=== PATIENT | male | born 1940 | race Hispanic/Latino ===

== ENCOUNTER 2017-05-03 17:31 | Inpatient (IN) | payer MEDICARE, OTHER ==
--- NOTE | 2017-05-03 18:03 | ED PDOC ---
Arrival/HPI - General Historian: Spouse, Other (SON) - History of Present Illness Time/Duration: Prior to Arrival Symptom Onset: Sudden Symptom Course: Worsening <Sonia Mcpherson - Last Filed: 05/03/17 21:55> <Cesilia Duffy - Last Filed: 05/03/17 22:28> - General Chief Complaint: Altered Mental Status Time Seen by Provider: 05/03/17 17:39 - History of Present Illness Narrative History of Present Illness (Text): 05/03/17 18:03 Patient is a 76 y/o with PMH of CAD s/p CABG 13 years ago, Alzheimer dementia, Parkinson, BPH brought in by family secondary to multiple falls. As per patient son, he was trying to change patient, when patient fell forward multiple times, hit his head once. Patient was very agitated, gave patient Xanax, however Xanax made the agitation worst. Patient is incoherent, and as per this is his baseline. Patient's states for the past 3 weeks patient is not able to move his left hand well. Unable to obtain ROS due to mental status. (Sonia Mcpherson) Past Medical History - Provider Review Nursing Documentation Reviewed: Yes - Travel History Have you recently traveled outside [place] w/in the past 3 mons?: No - Tetanus Immunization Tetanus Immunization: Unknown - Cardiac Hx Cardiac Disorders: Yes ([place]) Other/Comment: CARDIAC HX WITH STENTS. DEMENTIA - Pulmonary Hx Respiratory Disorders: No - Neurological Hx Neurological Disorder: Yes Hx Dementia: Yes - HEENT Hx Deafness: Yes - Renal Hx Renal Disorder: No - Endocrine/Metabolic Hx Endocrine Disorders: No - Hematological/Oncological Hx Blood Disorders: No - Integumentary Hx Dermatological Disorder: No - Musculoskeletal/Rheumatological Hx Musculoskeletal Disorders: No Hx Falls: No - Gastrointestinal Hx Gastrointestinal Disorders: No - Genitourinary/Gynecological Hx Genitourinary Disorders: No - Psychiatric Hx Psychophysiologic Disorder: No Hx Substance Use: No - Surgical History Hx Cardiac Catheterization: Yes Hx Coronary Stent: Yes Hx Open Heart Surgery: Yes (cabg) - Suicidal Assessment Feels Threatened In Home Enviroment: No <Sonia Mcpherson - Last Filed: 05/03/17 21:55> Family/Social History - Physician Review Nursing Documentation Reviewed: Yes Family/Social History: No Known Family HX Smoking Status: Former Smoker Hx Alcohol Use: No Hx Substance Use: No Hx Substance Use Treatment: No <Sonia Mcpherson - Last Filed: 05/03/17 21:55> Allergies/Home Meds <Sonia Mcpherson - Last Filed: 05/03/17 21:55> <Cesilia Duffy - Last Filed: 05/03/17 22:28> Allergies/Adverse Reactions: Allergies No Known Allergies Allergy (Unverified 05/03/17 17:34) Home Medications: Home Meds Medication Instructions Recorded Confirmed Alprazolam [Xanax] 1 tab PO BID 05/03/17 05/03/17 Aspirin [Aspirin Chewable] 81 mg PO DAILY 05/03/17 05/03/17 Lisinopril [Zestril] 40 mg PO DAILY 05/03/17 05/03/17 Memantine [Namenda] 10 mg PO DAILY 05/03/17 05/03/17 Review of Systems - Review of Systems Systems not reviewed;Unavailable: Dementia <Sonia Mcpherson - Last Filed: 05/03/17 21:55> Physical Exam Temperature: Afebrile Blood Pressure: Hypotensive Pulse: Tachycardic Respiratory Rate: Tachypneic Appearance: Positive for: Ill-Appearing, Uncomfortable, Cachectic Pain Distress: Other (n/a) Mental Status: Positive for: Confused, Agitated - Systems Exam Head: Present: Normocephalic. No: Atraumatic Pupils: Present: PERRL Extroacular Muscles: Present: EOMI Conjunctiva: No: Icteric Mouth: Present: Dry Neck: Present: Normal Range of Motion. No: Meningeal Signs, JVD, Lymphadenopathy Respiratory/Chest: Present: Clear to Auscultation, Good Air Exchange, Tachypneic. No: Respiratory Distress, Accessory Muscle Use, Wheezes, Rales, Retracting, Rhonchi Cardiovascular: Present: Regular Rate and Rhythm, Normal S1, S2. No: Murmurs, Irregular Rhythm, Tachycardic, Bradycardic, Rub Abdomen: Present: Tenderness, Normal Bowel Sounds, Scars. No: Distention, Peritoneal Signs, Rebound, Guarding, Hernias, Feeding Tubes Back: Present: Normal Inspection, Other (rashes) Upper Extremity: Present: Normal Inspection. No: Cyanosis, Edema Lower Extremity: Present: Normal Inspection, Edema Neurological: Present: Other (cogwheel rigidity, intention and non intention tremors. ). No: Speech Normal, Motor Func Grossly Intact, Normal Sensory Function, Normal Cerebellar Funct, Norm Deep Tendon Reflexes, Gait Normal, Memory Normal, Normal 2Pt Descrimination Skin: Present: Rashes, Diaphoretic, Laceration (1 CM ON THE FOREHEAD), Abrasion (On the left elbow. ), Other (left hand is swollen, mild erythema. ) Psychiatric: Present: Anxious, Agitated, Delusional <Sonia Mcpherson - Last Filed: 05/03/17 21:55> Medical Decision Making Re-evaluation Time: 21:40 - Lab Interpretations I have reviewed the lab results: Yes Interpretation: Abnormal lab values - RAD Interpretation Broadcast Traffic Coordinator: ED Physician - EKG Interpretation Interpreted by ED Physician: Yes Type: 12 lead EKG <Sonia Mcpherson - Last Filed: 05/03/17 21:55> <Cesilia Duffy - Last Filed: 05/03/17 22:28> ED Course and Treatment: 05/03/17 18:18 Patient is a 76 y/o with PMH of CAD s/p CABG 13 years ago, Alzheimer dementia, Parkinson, BPH brought in by family secondary to multiple falls. Differentials: ACS versus CVA versus sepsis versus worsening Parkinson/dementia Plan: CBC, CMP, CARDIAC ENZYMES. UA, UCX, BCX, VBG EKG, CHEST X-RAY, CT head w/o contrast 1.3 L NS Restrains due to agitation/safety. Discussed with Dr Duffy 05/03/17 19:26 Patient's rectal temp is 99.7, tachypneic, wbc of 15, and lactic acid of 7.3. code sepsis was called. Patient started on maxipime and vanco 1 gm of each IVPB. NS at 30 mg/kg/hr to be continued. Patient has labile hypotension as well. ICU evaluation was requested, however , after speaking to the spouse patient doesn't want anything, no intubation, no central lines, and no chest compressions. Dr Duffy spoke to Dr Hernandez, agreed with the decision, patient to be admitted to tele. Palliative nurse consult obtained. CT head w/o contrast- pending report. (Sonia Mcpherson) Patient Seen With Resident: In agreement with resident note which contains more details about the patient. Patient was seen and evaluated with resident. Came up with plan and treatment together. A 76 year old male with multiple falls today. Additional HPI as noted by resident. On physical exam, patient has rashes on back. Patient skin also diaphoretic and a 1 cm abrasion on the forehead needs no repair), abrasion on the left elbow, and left hand is swollen with mild erythema. Patient has no abdominal tenderness. Patient is anxious, agitated and delusional. On neurological exam, patient has cogwheel rigidity, intention and non intention tremors, motor function appears to be grossly intact. Patient is very uncooperative. Ordered EKG, chest xray, urinalysis and labs. Will give patient IV fluids. 05/03/17 22:20 CT results: IMPRESSION: 1. No gross intracranial hemorrhage. Recommend repeat examination when clinically able. 2. Nonspecific white matter changes. 3. Incidental/non-acute findings are described above. The patient is here with the noted history. Temp is 99.7 rectal and is hemodynamically stable. Labs reveal leukocytosis with lactic acid of 7.3. Code sepsis called. Following code sepsis protocol, patient wad administered 30mL/kg IVF as well broad spectrum iv antibiotics. CXR showing questionable LLL infiltrate. The patient required 2mg versed to obtain a CT brain. CT brain was done with a lot of motion artifact but no gross bleed was noted. Per and son, the patient is to be made DNR/DNI with no pressor support if needed and no central lines placed if necessary. Repeat lactic acid is normal. The patient will be admitted to [facility] for altered mental status and sepsis. 05/03/17 22:25 Patient has been admitted to Dr. Hernandez's service as discussed with him earlier. (Cesilia Duffy) - Lab Interpretations Lab Results: 05/03/17 18:00 05/03/17 18:00 Lab Results 05/03/17 19:10: Urine Color Yellow, Urine Appearance Clear, Urine pH 5.5, Ur Specific [place] >= 1.030, Urine Protein 30 H, Urine Glucose (UA) Negative, Urine Ketones Negative, Urine Blood Moderate H, Urine Nitrate Negative, Urine Bilirubin Negative, Urine Urobilinogen 0.2, Ur Leukocyte Esterase Negative, Urine RBC 5 - 10, Urine WBC 0 - 2, Ur Epithelial Cells 0 - 2, Urine Bacteria Few 05/03/17 18:00: Sodium 140, Chloride 104, Potassium 4.7, Carbon Dioxide 21, Anion Gap 20, BUN 34 H, Creatinine 1.2, Est GFR ( Amer) > 60, Est GFR ( Non-Af Amer) 59, Random Glucose 101, Calcium 9.8, Phosphorus 4.3, Magnesium 1.9 , Total Bilirubin 0.7, AST 32, ALT 33, Alkaline Phosphatase 85, Lactate Dehydrogenase 611, Total Creatine Kinase 306 H, CK-MB (CK-2) 1.5, CK-MB (CK-2) % Cancelled, Troponin I 0.11 D, Total Protein 7.7, Albumin 4.3, Globulin 3.4, Albumin/Globulin Ratio 1.3, Lipase 111 05/03/17 18:00: pO2 38, VBG pH 7.30 L, VBG pCO2 49.0, VBG HCO3 24.1, VBG Total CO2 25.6, VBG O2 Sat (Calc) 77.2 H, VBG Base Excess -2.7 L, VBG Potassium 4.8, Sodium 142.0, Chloride 105.0, Glucose 108, Lactate 7.3 H*, FiO2 21.0, Venous Blood Potassium 4.8 05/03/17 18:00: PT 11.3, INR 1.05, APTT 25.2 05/03/17 18:00: WBC 15.0 H D, RBC 4.28, Hgb 12.8 L, Hct 37.7 L, MCV 88.1, MCH 29.9, MCHC 34.0, RDW 14.2, Plt Count 258, MPV 10.5, Gran % 87.9 H, Lymph % (Auto ) 5.1 L, [place] % (Auto) 6.7 H, Eos % (Auto) 0.2 L, Baso % (Auto) 0.1, Gran # 13.21 H, Lymph # 0.8 L, [place] # 1.0 H, Eos # 0.0, Baso # 0.02 - RAD Interpretation Narrative RAD Interpretations (Text): 05/03/17 21:59 Normal chest x-ray. (Sonia Mcpherson) Radiology Orders: 05/03/17 17:55 CHEST PORTABLE [RAD] Stat 05/03/17 17:57 HEAD W/O CONTRAST [CT] Stat - EKG Interpretation EKG Interpretation (Text): 05/03/17 21:57 NSR at 77, with PACs. mild sagging ST depression from V4-V6 more evident compared to 05/19/2015. ( Sonia Mcpherson) - Medication Orders Current Medication Orders: Discontinued Medications Sodium Chloride 1,000 ml/ IV (SUPPLIES) 1,000 mls @ 2,721.54 mls/hr IV ONCE ONE PRN Reason: 60 ML/KG/HR Stop: 05/03/17 17:52 Last Admin: 05/03/17 18:29 Dose: 2,721.54 mls/hr Cefepime HCl (Maxipime 1gm) 1 gm in 100 mls @ 100 mls/hr IVPB ONCE ONE PRN Reason: Protocol Stop: 05/03/17 19:59 Last Admin: 05/03/17 19:48 Dose: 100 mls/hr Vancomycin HCl (Vancomycin 1gm) 1 gm in 250 mls @ 167 mls/hr IVPB STAT STA PRN Reason: Protocol Stop: 05/03/17 20:24 Last Admin: 05/03/17 20:49 Dose: 167 mls/hr Sodium Chloride (Sodium Chloride 0.9%) 500 mls @ 360 mls/hr IV .Q1H24M STA Stop: 05/03/17 20:53 Last Admin: 05/03/17 20:05 Dose: 360 mls/hr Midazolam HCl (Versed Inj) 1 mg IVP ONCE ONE Stop: 05/03/17 19:31 Last Admin: 05/03/17 19:28 Dose: 1 mg Midazolam HCl (Versed Inj) 1 mg IVP ONCE ONE Stop: 05/03/17 19:48 Midazolam HCl (Versed Inj) 1 mg IVP ONCE STA Stop: 05/03/17 20:32 Last Admin: 05/03/17 20:49 Dose: 1 mg Midazolam HCl (Versed Inj) Confirm Administered Dose 2 mg .ROUTE .STK-MED ONE Stop: 05/03/17 21:42 Last Admin: 05/03/17 22:05 Dose: <Sonia Mcpherson - Last Filed: 05/03/17 21:55> - PA / WELT MAKER / Resident Statement / has reviewed & agrees with the documentation as recorded. MD/ has examined the patient and agrees with the treatment plan. - Scribe Statement The provider has reviewed the documentation as recorded by the Scribe <Cesilia Duffy - Last Filed: 05/03/17 22:28> - Scribe Statement Elsaclaribellyndsey Delunadi Provider Scribe Attestation: All medical record entries made by the Scribe were at my direction and personally dictated by me. I have reviewed the chart and agree that the record accurately reflects my personal performance of the history, physical exam, medical decision making, and the department course for this patient. I have also personally directed, reviewed, and agree with the discharge instructions and disposition. (Cesilia Duffy) Disposition/Present on Arrival - Present on Arrival Any Indicators Present on Arrival: No History of DVT/PE: No History of Uncontrolled Diabetes: No Urinary Catheter: No History of Decub. Ulcer: No History Surgical Site Infection Following: None - Disposition Have Diagnosis and Disposition been Completed?: Yes Disposition Time: 21:55 Patient Plan: Admission <Sonia Mcpherson - Last Filed: 05/03/17 21:55> <Cesilia Duffy - Last Filed: 05/03/17 22:28> - Disposition Diagnosis: Sepsis Disposition: HOSPITALIZED Patient Problems: Current Active Problems Problem Status Onset Sepsis Acute Condition: GUARDED
[2017-05-03 18:27] LABS: ADD MANUAL DIFF? NO
[2017-05-03 18:31] LABS: VENOUS BLOOD GAS BASE EXCESS -2.7 mmol/L (0.0-2.0)
[2017-05-03 18:33] LABS: BASO # 0.02 K/mm3 (0.0-2.0); BASO % 0.1 % (0.0-3.0); EOS % 0.2 % (1.5-5.0); GRAN # 13.21 (1.4-6.5); GRAN % 87.9 % (50.0-68.0); HEMATOCRIT 37.7 % (42.0-52.0); LYMPH # 0.8 (1.2-3.4); LYMPH % 5.1 % (22.0-35.0); MEAN CELL VOLUME 88.1 fL (80.0-105.0); MEAN CORPUSCULAR HEMOGLOBIN 29.9 pg (25.0-35.0); MEAN PLATELET VOLUME 10.5 fl (7.0-11.0); MONO % 6.7 % (1.0-6.0); PLATELET COUNT 258 10^3/uL (120.0-450.0); RED CELL DISTRIBUTION WIDTH 14.2 % (11.5-14.5)
[2017-05-03 18:41] LABS: ALB/GLOB RATIO 1.3 (1.1-1.8); ALKALINE PHOSPHATASE 85 U/L (38-133); ALT/SGPT 33 U/L (7-56); AST/SGOT 32 U/L (15-59); BILIRUBIN,TOTAL 0.7 mg/dL (0.2-1.3); BLOOD UREA NITROGEN 34 mg/dL (7-21); CALCIUM 9.8 mg/dL (8.4-10.5); CARBON DIOXIDE 21 mmol/L (21-33); CHLORIDE 104 mmol/L (98-107); GFR AFRICAN-AMERICAN > 60; GLUCOSE,RANDOM 101 mg/dL (70-110); LIPASE 111 U/L (23-300); MAGNESIUM 1.9 mg/dL (1.7-2.2); PHOSPHOROUS 4.3 mg/dL (2.5-4.5); POTASSIUM 4.7 mmol/L (3.6-5.0); SODIUM 140 mmol/L (132-148); TOTAL PROTEIN 7.7 g/dL (5.8-8.3)
[2017-05-03 18:42] LABS: INR 1.05 (0.93-1.08); PARTIAL THROMBOPLASTIN TIME 25.2 Seconds (23.7-30.8)
[2017-05-03 18:52] LABS: TROPONIN I 0.11 ng/mL
[2017-05-03] MEDS ORDERED: Vancomycin 1gm in NS 250ml 1 GM/250 ML BAG IVPB STA (18:55)
[2017-05-03] MEDS ORDERED: Cefepime 1gm in NS 100ml 1 GM/100 ML BAG IVPB ONE (19:00)
[2017-05-03] MEDS ORDERED: Midazolam 5 MG/5 ML VIAL IVP ONE ×2 (19:20→19:47)
[2017-05-03 19:22] LABS: PH,URINE 5.5 (4.7-8.0); URINE BILIRUBIN NEGATIVE (NEGATIVE); URINE BLOOD MODERATE (NEGATIVE); URINE GLUCOSE (UA) NEGATIVE (NEGATIVE); URINE KETONE NEGATIVE (NEGATIVE); URINE LEUKOCYTE ESTERASE NEGATIVE Leu/uL (NEGATIVE); URINE PROTEIN 30 mg/dL (<30 mg/dL); URINE UROBILINOGEN 0.2 E.U./dL (<1 E.U./dL)
[2017-05-03] MEDS ORDERED: Sodium Chloride 0.9% 500 ML IV STA (19:30)
[2017-05-03] MEDS ORDERED: Midazolam 2 MG/2 ML VIAL IVP ONE (19:30)
[2017-05-03 19:43] LABS: URINE COLOR YELLOW (YELLOW)
[2017-05-03 19:44] LABS: URINE APPEARANCE CLEAR (CLEAR)
[2017-05-03 19:45] LABS: URINE BACTERIA FEW (NEG); URINE EPITHELIAL CELLS 0 - 2 /hpf (0-5); URINE WBC 0 - 2 /hpf (0-6)
[2017-05-03] MEDS ORDERED: Midazolam 2 MG/2 ML VIAL IVP STA (20:31)
[2017-05-03 21:27] LABS: VENOUS BLOOD GAS BASE EXCESS -0.6 mmol/L (0.0-2.0)
[2017-05-03] MEDS ORDERED: Midazolam 2 MG/2 ML VIAL ONE (21:41)
--- NOTE | 2017-05-03 22:18 | CT ---
EXAM: CT Head Without Intravenous Contrast CLINICAL HISTORY: 76 years old, male; Injury or trauma; Fall; Initial encounter; Blunt trauma (contusions or hematomas); Injury details: Patient was medicated numerous times, taped, immobilized and still fighting-best films possible-sent for read per dr. Duffy TECHNIQUE: Axial computed tomography images of the head/brain without intravenous contrast. This CT exam was performed using one or more of the following dose reduction techniques: automated exposure control, adjustment of the mA and/or kV according to patient size, and/or use of iterative reconstruction technique. COMPARISON: CT - HEAD W/O CONTRAST 04/05/2016 1:32:24 PM FINDINGS: Limitations: Motion artifact - moderate to extensive. Brain: Moderate atrophy. No gross intracranial hemorrhage. No definite mass. Several scattered foci of decreased attenuation within periventricular/subcortical white matter. Limited evaluation for edema. Ventricles: No hydrocephalus. Bones/joints: No gross fracture. Soft tissues: Unremarkable. Sinuses: No acute sinusitis. Mastoid air cells: No mastoid effusion. Orbits: Unremarkable as visualized. IMPRESSION: 1. No gross intracranial hemorrhage. Recommend repeat examination when clinically able. 2. Nonspecific white matter changes. 3. Incidental/non-acute findings are described above.
[2017-05-04 02:34] VITALS: BMI 14.3
--- NOTE | 2017-05-04 09:40 | CP.PCM.CON ---
History of Present Illness - History of Present Illness History of Present Illness: Palliative consult requested by Dr Twin Reddy Reason: Goals of care 76 year old male with history of Parkinson's disease brought in by family after suffering multiple falls at home. He has an abrasion on forehead. CT of haed showed no acute findings. PMHx: Parkinson's disease, Alzheimer's dementia, BPH, CAD s/p CABG. Social History: Non smoker, no alcohol or drug use.Lives with spouse. Advance Care Planning: The patient does not have an Advance Directive: He is DNR /DNI. Review of Systems: As per HPI, patient is altered unable to obtain full review Past Patient History - Tetanus Immunizations Tetanus Immunization: Unknown - Past Social History Smoking Status: Unknown If Ever Smoked - CARDIAC Hx Cardiac Disorders: Yes ([place]) Other/Comment: open heart surgery - PULMONARY Hx Respiratory Disorders: No - NEUROLOGICAL Hx Neurological Disorder: Yes Hx Alzheimer's Disease: Yes Hx Dementia: Yes - HEENT Hx Deafness: Yes - RENAL Hx Chronic Kidney Disease: No - ENDOCRINE/METABOLIC Hx Endocrine Disorders: No - HEMATOLOGICAL/ONCOLOGICAL Hx Blood Disorders: No - INTEGUMENTARY Hx Dermatological Problems: No - MUSCULOSKELETAL/RHEUMATOLOGICAL Hx Falls: Yes - GASTROINTESTINAL Hx Gastrointestinal Disorders: No - GENITOURINARY/GYNECOLOGICAL Hx Genitourinary Disorders: No - PSYCHIATRIC Hx Psychophysiologic Disorder: No Hx Substance Use: No - SURGICAL HISTORY Hx Cardiac Catheterization: Yes Hx Coronary Stent: Yes Meds Allergies/Adverse Reactions: Allergies Allergy/AdvReac Type Severity Reaction Status Date / Time No Known Allergies Allergy Unverified 05/03/17 17:34 - Medications Medications: Current Medications Alprazolam (Xanax) 0.25 mg PO BID PRN PRN Reason: Anxiety Stop: 05/11/17 08:48 Aspirin (Aspirin Chewable) 81 mg PO DAILY MICHELLE Lisinopril (Zestril) 40 mg PO DAILY MICHELLE Memantine (Namenda) 10 mg PO DAILY MICHELLE Physical Exam - Constitutional Appears: Agitated, Cachectic, Chronically Ill - Head Exam Head Exam: NORMOCEPHALIC Additional comments: abrasion forehead - Eye Exam Eye Exam: Normal appearance, PERRL - ENT Exam ENT Exam: Mucous Membranes Moist, Normal Oropharynx - Neck Exam Neck exam: Positive for: Normal Inspection - Respiratory Exam Respiratory Exam: Decreased Breath Sounds, NORMAL BREATHING PATTERN - Cardiovascular Exam Cardiovascular Exam: Tachycardia, +S1, +S2 - GI/Abdominal Exam GI & Abdominal Exam: Normal Bowel Sounds, Soft Additional comments: no tenderness - Extremities Exam Extremities exam: Positive for: full ROM, pedal pulses present - Neurological Exam Neurological exam: Altered Additional comments: tremors - Skin Skin Exam: Dry, Pallor Additional comments: abrasion on forehead and left elbow, left hand swollen - Additional Findings Additional findings: Palliative performance scale rating 30 % Results - Vital Signs Recent Vital Signs: Last Vital Signs Temp 97.7 F 05/04/17 06:00 Pulse 109 H 05/04/17 06:00 Resp 18 05/04/17 06:00 BP 140/72 05/04/17 06:00 Pulse Ox 94 L 05/03/17 20:34 - Labs Result Diagrams: 05/03/17 18:00 05/03/17 18:00 Labs: Laboratory Results - last 24 hr 05/03/17 21:10 pO2 39 VBG pH 7.30 L VBG pCO2 54.0 VBG HCO3 26.6 VBG Total CO2 28.3 H VBG O2 Sat (Calc) 78.0 H VBG Base Excess -0.6 L VBG Potassium 4.7 Sodium 142.0 Chloride 110.0 H Glucose 103 Lactate 1.7 FiO2 21.0 Venous Blood Potassium 4.7 Assessment & Plan - Assessment and Plan (Free Text) Assessment: 76 year old male admitted with altered mental status, leukocytosis Patient is restless, confused. He is unable to follow command Patient's reports that this is not his usual behavior.She states he is generally calm and able to follow direction. She is unsure as to why he is so agitated. She reports that his appetite is good and that she has not noticed a decline in his condition until the past few days. She affirms that she wants patient to be a DNR/DNI. I explained the purpose of a POLST. She states she is willing to complete a POLST prior to patients discharge. Family's goals are to continue supportive medical care. Time spent in discussion with patient regarding advance care panning and goals of care, 20 minutes
--- NOTE | 2017-05-04 10:14 | RAD ---
HISTORY: Sepsis Patient COMPARISON: 05/20/2015. FINDINGS: LUNGS: There is mild pulmonary venous congestion. No focal consolidation. PLEURA: No significant pleural effusion identified, no pneumothorax apparent. CARDIOVASCULAR: The heart is normal in size. Status post median sternotomy PICC OSSEOUS STRUCTURES: No significant abnormalities. VISUALIZED UPPER ABDOMEN: Normal. OTHER FINDINGS: None. IMPRESSION: No active pulmonary disease.
--- NOTE | 2017-05-04 13:14 | CON ---
DATE: 05/04/2017 HISTORY OF PRESENT ILLNESS: The patient is a 76-year-old white male who was brought to the Emergency Room yesterday due to multiple falls at home. The patient has been very confused, incontinent, slee ping poorly at night. I reviewed the chart, spoke with the attending physician. I also spoke at [facility] with the patient's . PAST MEDICAL HISTORY: As follows: He has a history of dementia which was diagnosed approximately 7 years ago, has gotten worse over the past year. He has trouble recognizing members of his family. Twin barrera has trouble carrying on a conversation. The patient also has a history of coronary artery disease with history of coronary artery bypass graft. He has benign prostatic hypertrophy. He is incontinen t. He has hypertension. PERSONAL HISTORY: He is , lives with his , ____ with children and grandchildren. The pa tient has no history of alcohol or substance abuse. CURRENT LABORATORY DATA: His white count is 15,000, hemoglobin of 12.8, platelet count 258,000. His complete metabolic profile was all normal except for a BUN of 34, creatinine of 1.2, estimated GFR o f 59. CPK of 306. The patient has cultures of urine and blood pending. His urinalysis shows 30 mg/ dL of protein. He has a moderate amount of blood. He is negative for urinary leukocyte esterase. T he patient had a CT scan of the head which revealed a moderate degree of cerebral atrophy. No acute hemorrhage. Periventricular subcortical white matter disease. There was much artifact. The patient had a chest x-ray which showed no active pulmonary disease. CURRENT MEDICATIONS: Chewable aspirin 81 mg, Namenda 10 mg daily. He has an order for Xanax 0.25 mg b.i.d. p.r.n. and Zestril. REVIEW OF SYSTEMS: Unable to ascertain due to impaired mental status. PHYSICAL EXAMINATION: VITAL SIGNS: Blood pressure 140/72, pulse 54, respirations 18 per minute and afebrile. NEUROLOGIC: No gross focal neurological findings. PSYCHIATRIC MENTAL STATUS: The patient is in [place] restraints. He is very confused, totally unable to carry on any kind of rational conversation. He has extreme dysphasia. He is restless, totally un aware of his surroundings, looks totally disoriented; knows his name is, however, Williams. He can fol low some simple commands, but not many. The patient's recent memory, judgment, insight are all poor. Unable to cooperate with formal mental status. IMPRESSION: Advanced Alzheimer's disease with delirium, severe behavioral disturbance. He has leuko cytosis. He has a history of hypertension, coronary artery disease with coronary artery bypass graft . The patient also is possibly hypoxic. His venous pO2 was 39. The patient had lactic acidosis, in creased lactate rather than blood gases. PLAN: I will order appropriate psychotropic medication. We will also order thyroid studies, thyroid profile, vitamin D level, B12 and folate levels and we will monitor mental status. Matias Garland MD cc: [id number] TT: 05/04/2017 13:13:31 Confirmation # [id number] Dictation # [id number] tn
[2017-05-04 13:36] LABS: FREE T4 1.15 ng/dL (0.78-2.19)
[2017-05-04 13:50] LABS: THYROID STIMULATING HORMONE < 0.02 mIU/mL (0.46-4.68)
--- NOTE | 2017-05-04 19:37 | CON ---
DATE: 05/04/2017 HISTORY OF PRESENT ILLNESS: This is a 76-year-old male with a past medical history of coronary arter y disease, status post CABG 30 years ago, Alzheimer dementia, Parkinson's and brought in by the famil y because of multiple falls. He was trying to change and the patient fell forward. The patient was very agitated and called to evaluate the patient. PAST MEDICAL HISTORY: As above, coronary artery disease status post CABG 13 years ago, Alzheimer's, Parkinson's, benign prostate hypertrophy. REVIEW OF SYSTEMS: A 10-point review of systems, patient is very confused and not following commands . PHYSICAL EXAMINATION: HEENT: Normocephalic, atraumatic. NECK: Supple. NEUROLOGIC: Awake, confused, not following simple commands, at times only. No facial asymmetry. To ngue midline. Motor examination: Moves all the extremities spontaneously. Deep tendon reflexes 1+. Both plantars are downgoing. Sensory appears intact. Cerebellar and gait deferred. IMPRESSION: Intermittent confusional state, deconditioned. Continue present management. We will do physical therapy. We will follow up. Jake Chowdhury MD cc: [id number] TT: 05/04/2017 19:36:00 Confirmation # [id number] Dictation # [id number]
--- NOTE | 2017-05-04 23:06 | CON ---
DATE: 05/04/2017 LOCATION: The patient seen in room 563, bed 1. CHIEF COMPLAINT: Change in mental status times several days. HISTORY OF PRESENT ILLNESS: A 76-year-old male who appears chronically ill and with history of coron isabel artery disease, Alzheimer dementia, Parkinson's, BPH, hypertension who is admitted now with a slim gnosis of worsening of his change of mental status worse than usual baseline. He is unable to give a ny information. Information is gathered from the chart and the nurse caring for the patient. There have no fevers documented, no chills. There is no chest pain reported. There is no shortness of mallorie ath, although he did have shortness of breath in the Emergency Room. PAST MEDICAL HISTORY: Coronary artery disease, Alzheimer dementia, Parkinson's, benign prostatic hyp erplasia, hypertension. PAST SURGICAL HISTORY: Significant for coronary bypass graft. ALLERGIES: The patient has no known allergies. MEDICATIONS: At home include the patient to be on Xanax, aspirin, Namenda, and Zestril. PHYSICAL EXAMINATION: GENERAL: He is in bed, appearing much older than his stated age. VITAL SIGNS: Temperature of 98, T-max is 99.7, pulse of 64. It was up to 109. Respiratory rate of 18. In the Emergency Room yesterday, was up to 25 with a blood pressure of 114/59. HEENT: Unremarkable. NECK: Supple. LUNGS: Have decreased breath sounds. HEART: Normal S1, S2. ABDOMEN: Has mild tenderness. No rebound, no guarding, no masses. LABORATORY EXAMINATION: Reveals the patient's white count of 15,000, hemoglobin of 12, MCV of 88, pl atelets of . The patient has 87% granulocytosis. Coagulation is noted. Blood gases are noted. BUN of 34, creatinine of 1.2. CK is 306. Urinalysis is negative with 0-2 WBCs. Chest x-ray is re ported to be negative. CAT scan of the head is no gross hemorrhage, nonspecific findings. ASSESSMENT AND PLAN: This is a 76-year-old male with coronary artery disease, Alzheimer dementia, Pa rkinson's, benign prostatic hyperplasia, hypertension with systemic inflammatory response syndrome. With abdominal tenderness, must rule out gastrointestinal pathology versus aspiration pneumonia. We will treat the patient with Zosyn and order blood cultures, urine cultures and procalcitonin, CAT sca n of the abdomen and pelvis and we will make further recommendations upon availability of initial res ults. We will follow closely with you. Rom Li MD cc: [id number] TT: 05/04/2017 23:05:09 Confirmation # [id number] Dictation # [id number] mn
--- NOTE | 2017-05-05 | CARD ---
APPROVED REPORT EKG Measurement Heart [id number] GA [id number] <Conclusion> Sinus rhythm with occasional PVCs Possible Left atrial enlargement ST abnormality, possible digitalis effect Abnormal ECG
[2017-05-05] MEDS: Piperacillin/Tazobact 3.375 gm 100 ML IVPB SCH ×5 (00:51→23:15)
[2017-05-05] MEDS ORDERED: Barium Sulfate Susp 2.1% w/v, 2.0% w/w 450 mL Bottle PO ONE (06:37)
[2017-05-05 06:45] LABS: ADD MANUAL DIFF? NO
[2017-05-05 07:05] LABS: BASO # 0.02 K/mm3 (0.0-2.0); BASO % 0.2 % (0.0-3.0); EOS % 0.4 % (1.5-5.0); GRAN # 6.75 (1.4-6.5); GRAN % 73.7 % (50.0-68.0); HEMATOCRIT 37.5 % (42.0-52.0); LYMPH # 1.4 (1.2-3.4); LYMPH % 14.8 % (22.0-35.0); MEAN CELL VOLUME 87.4 fL (80.0-105.0); MEAN CORPUSCULAR HEMOGLOBIN 29.6 pg (25.0-35.0); MEAN CORPUSCULAR HGB CONC 33.9 g/dl (31.0-37.0); MEAN PLATELET VOLUME 10.5 fl (7.0-11.0); MONO % 10.9 % (1.0-6.0); PLATELET COUNT 231 10^3/uL (120.0-450.0); RED CELL DISTRIBUTION WIDTH 14.1 % (11.5-14.5); WHITE BLOOD COUNT 9.2 10^3/ul (4.5-11.0)
--- NOTE | 2017-05-05 10:11 | HP ---
CHIEF COMPLAINT AND HISTORY OF PRESENT ILLNESS: This is a 76-year-old male who is coming in to the [facility] with a past medical history of coronary artery disease status post CABG, Alzheimer's dementia , Parkinson's, BPH. He has been having falls. The patient was being taken care of by his family at home. He had fallen and hit his head. He was becoming more agitated. The patient's had stated that he has not been able to move his left hand well. The patient himself is not able to give much information because of his underlying confusion. Most of the information was taken from the medical records and in talking to the Emergency Room physician. ALLERGIES: No known drug allergies. HOME MEDICATIONS: Xanax, aspirin, lisinopril, Namenda. PAST MEDICAL HISTORY: As above, asymptomatic bradycardia, dementia - Alzheimer's type, hypertension, BPH, coronary artery disease, status post CABG. SOCIAL HISTORY: He does not smoke. He is . He lives with his . FAMILY HISTORY: Noncontributory. PHYSICAL EXAMINATION: VITAL SIGNS: He has a temperature of 97.7, pulse of 109, blood pressure 140/72, respirations 18. GENERAL: The patient is lying in bed, flat, and in no apparent distress. HEAD AND NECK EXAM: Atraumatic, normocephalic. Conjunctivae are pink. Throat clear and mouth with moist mucosa. Oropharynx benign. NECK: Supple. No JVD, thyromegaly, or adenopathy. No bruits. HEART: S1 and S2 regular rate and rhythm. No murmurs, rubs, or gallops. LUNGS: Clear to auscultation bilaterally. No wheezing rales or rhonchi appreciated. No retractions on exam. ABDOMEN: Soft, nontender, nondistended. Bowel sounds are positive in all quadrants. No rebound. No hepatosplenomegaly. EXTREMITIES: No cyanosis, clubbing, or edema. NEUROLOGIC: Unable to do a full exam. The patient was able to move his extremities, but not able to see if he has any weakness in the left arm. PSYCHIATRIC: The patient is confused, not able to answer questions. GENITOURINARY: No CVA tenderness VASCULAR: 2+ pulses in carotid and pedal pulses. SKIN: No erythema or abnormal nodules noted. SPINE: Normal curvature. LYMPHADENOPATHY: No anterior cervical or posterior cervical adenopathy. No inguinal adenopathy. LABORATORY DATA: White count of 15. Hemoglobin is 12.8. Platelet count is 258. INR is 1.05. Chem istry shows the sodium 140, potassium 4.7. Creatinine is 1.2. Troponin is 0.11. Urine shows blood is moderate. Nitrites are negative. Bilirubin is negative. Chest x-ray shows no infiltrates. EKG shows heart rate of 77 with normal axes, nonspecific ST changes. CT of the head shows no gross intracranial hemorrhage. ASSESSMENT: 1. Fall. 2. Delirium. 3. Questionable left arm weakness. 4. Coronary artery disease, status post coronary artery bypass graft history. 5. Parkinson's. 6. Dementia, Alzheimer's type. 7. Benign prostatic hypertrophy. 8. Hypertension. 9. Asymptomatic bradycardia. PLAN: The patient is going to be admitted to the hospital. He is on aspirin. He is going to contin ue with his Namenda. He is on Xanax as needed. He is going to continue with lisinopril for his hype rtension. I will get Dr. Li to evaluate the patient for infection given that he has an eleva gato white count. He had blood cultures and urine cultures done. The patient is on a liquid diet. I will try to speak to the patient's family to give them an update. I tried to call the patient's wif e, Lalita, was not able to get in touch with her, not able to leave a message. I will try to get i n touch with Moise, the patient's son. Ronal Hernandez MD cc: [id number] TT: 05/04/2017 10:08:25 cyn
--- NOTE | 2017-05-05 10:12 | PN ---
DATE: 05/05/2017 The patient is in bed in no acute distress, nontoxic. PHYSICAL EXAMINATION: VITAL SIGNS: Temperature is 98, blood pressure is 130/40, respiratory rate of 18. HEENT: Unremarkable. NECK: Supple. LUNGS: Decreased breath sounds. HEART: Normal S1, S2. ABDOMEN: Soft, nontender. LABORATORY EXAMINATION: Reveals the patient's white count is 9.2, hemoglobin of 12, platelets of 231 , BUN of 34, creatinine of 1.2. CK is 306. Urinalysis is noted. Microbiology reveals the urine cul tures are negative. The blood cultures are negative. Review of orders reveals the patient's procalc itonin is pending. The patient is on Zosyn. CAT scan of the abdomen is pending. ASSESSMENT AND PLAN: A 76-year-old male who appears much, much older than his stated age with a hist ory of Alzheimer's dementia, coronary artery disease, Parkinson's disease, benign prostatic hypertrop hy, hypertension, admitted with systemic inflammatory response syndrome and had abdominal tenderness on exam, must rule out gastrointestinal pathology and leukocytosis, improved. Must also rule out asp iration pneumonia, currently on Zosyn, awaiting for CAT scan of the abdomen and pelvis results, await ing for procalcitonin results and we will follow closely with you; on Zosyn. Rom Li MD cc: [id number] TT: 05/05/2017 10:01:11 Confirmation # [id number] Dictation # [id number] tn
[2017-05-05] MEDS ORDERED: Piperacillin/Tazobact 3.375 gm 100 ML IVPB ONE (11:26)
[2017-05-05 13:00] LABS: FOLATE > 20.0 ng/mL
--- NOTE | 2017-05-05 13:07 | CT ---
PROCEDURE: CT Abdomen and Pelvis without intravenous contrast HISTORY: sepsis COMPARISON: None. TECHNIQUE: Without contrast.. Contrast Dose: 0 Radiation dose: Total exam DLP = 488.38 mGy-cm. This CT exam was performed using one or more of the following dose reduction techniques: Automated exposure control, adjustment of the mA and/or kV according to patient size, and/or use of iterative reconstruction technique. FINDINGS: LOWER THORAX: Small bilateral pleural effusion. No infiltrate. Cardiomegaly. CABG. LIVER: Unremarkable. No gross lesion or ductal dilatation. GALLBLADDER AND BILE DUCTS: Unremarkable. PANCREAS: Unremarkable. No gross lesion or ductal dilatation. SPLEEN: Unremarkable. ADRENALS: Unremarkable. No mass. KIDNEYS AND URETERS: Bilateral renal cysts. Upper pole left kidney, 8.0 cm cyst. Lower pole left kidney, 10 mm. Lower pole right kidney, 3.0 cm. Mid right kidney, 2.0 cm. No renal calculus. No hydronephrosis. VASCULATURE: Unremarkable. No aortic aneurysm. BOWEL: Extensive descending and sigmoid diverticulosis without evidence of diverticulitis. No bowel obstruction. No other abnormal bowel loops are identified. APPENDIX: Unremarkable. Normal appendix. PERITONEUM: Unremarkable. No free fluid. No free air. LYMPH NODES: Unremarkable. No enlarged lymph nodes. BLADDER: Dependent high attenuation material at bladder base may represent milk of calcium or tiny bladder calculi. Less likely, calcification of bladder wall. This is best demonstrated on series 2, image 134. REPRODUCTIVE: Normal prostate BONES: No acute fracture. Posterior fixation of lumbar spine with pedicle screws and rods from L2 through S1. OTHER FINDINGS: None. IMPRESSION: No acute abnormality. Bilateral renal cysts, largest left upper pole, 8 cm. Descending and sigmoid diverticulosis without evidence of diverticulitis. Small bilateral pleural effusion. No pulmonary infiltrate. Tiny amount of high attenuation material at bladder base, possibly milk of calcium or tiny calculi. Additional findings as above.
[2017-05-05] MEDS ORDERED: Ergocalciferol 50,000 Intl Units Cap PO SCH (19:15)
--- NOTE | 2017-05-05 21:42 | PN ---
DATE: 05/05/2017 HISTORY OF PRESENT ILLNESS: The patient is a 76-year-old white male admitted to the hospital for sev ere falls at home. According to his he has dementia. He has deteriorated. He has been very co nfused. He has extreme difficulty having any rational conversation with members of family, does not even recognize members of the family. He has been incontinent. He is up at night at times. Here he has been at times incoherent. The patient . He is unable to carry on a rational conversation. I spoke with 1:1 aide who sits with the patient. The patient did eat today. The patient has had p eriods of extreme agitation. CURRENT MEDICATIONS: Include Xanax 0.25 mg b.i.d. p.r.n., Namenda 10 mg daily, Zestril. That the adelia clemons has an order for p.r.n. Geodon IM, which he has not received. He is receiving Seroquel 25 mg b .i.d. and 50 mg at bedtime. He is on Zosyn IV. He is on Drisdol for vitamin D deficiency. The chari ent did eat today. CURRENT LABORATORY DATA: His white count is 9200, hemoglobin 12.7, platelet count 231,000. His proc alcitonin level is 67. His TSH is less than 0.02. His free T4 is 1.15. The patient has been followed by infectious disease specialist. The patient was noted to have system ic inflammatory response syndrome. He has tenderness of his abdomen. The patient had a CT scan of h is abdomen and pelvis yesterday. It revealed no acute abnormality. He has bilateral renal cysts. H e has no evidence of diverticulitis. He has small bilateral pleural effusions, no infiltrates. The patient's vital signs: Blood pressure is 134/45, pulse 53, respirations 18 per minute, he is afe brile, O2 saturation is 94%. Reviewing nurses' notes, the patient was very agitated during the night with intermittent agitation d uring the day. IMPRESSION: The patient has advanced Alzheimer type dementia with extreme behavioral disturbance. H e is aphasic. He has coronary artery disease, probable Parkinson disease, benign prostatic hypertrop hy, hypertension, probable systemic inflammatory response. PLAN: I will increase Seroquel tonight to 100 mg at bedtime and continue 25 b.i.d. and continue Ativ an 0.5 mg at bedtime. Will repeat the TSH and will order Drisdol 50,000 international units once a w zuni. Matias Garland MD cc: [id number] TT: 05/05/2017 21:42:27 Confirmation # [id number] Dictation # [id number] dn
[2017-05-06] MEDS: Piperacillin/Tazobact 3.375 gm 100 ML IVPB SCH ×4 (05:54→23:22)
--- NOTE | 2017-05-06 11:08 | PN ---
DATE: 05/06/2017 The patient is a 18-lhmh-cmv-white male with a history of dementia who is seen by psychiatry due to e xtreme behavioral disturbance. Dr. Garland met with patient yesterday and I reviewed Dr. Garland's no te in which he increased Seroquel to 100 mg at bedtime and continue Seroquel b.i.d. The patient, acc ording to recent notes and discussion with staff the patient, with minimal improvement in his present ation regarding his orientation and his behavior. He continues to be restless, disorganized, agitate d and difficult to control on the unit. His insight and judgement appears to be fair. VITAL SIGNS: 97.8, 53, 144/45, ____ on room air at 7:26 a.m. this morning. LABORATORY DATA: There were no new labs as of 05/06/2017. Other labs were reviewed by this provider . CURRENT PSYCHIATRIC MEDICATIONS: Include Xanax 0.25 mg p.o. b.i.d. p.r.n., Namenda 10 mg daily and 5 mg 1800 hours, Seroquel 25 mg b.i.d. and 100 mg at bedtime which patient received full day of medica tion yesterday, maintain on 10 mg IM q. 6 p.r.n. The patient did not receive the p.r.n. in the last 24 hours. IMPRESSION: Advanced alzheimers type dementia with extreme behavioral disturbance. The patient also has multiple medical issues which can often causing delirium on top of severe dementia further exace rbating his behavioral disturbance. RECOMMENDATIONS: At this time since patient already had a full 24 hours of the Seroquel with minimal change in behavior, will increase Seroquel to 25 mg p.o. t.i.d. and increase Seroquel to 125 mg p.o. at bedtime with a small increase of 50 mg today and evaluate patient in 2 days to determine his ment al status, specifically his behavior and response to medications once he has gotten over 24 hours of this increased dose as well as allowing some time for his delirium to progressively improve as this i s probably contributing to his agitation at this time. ____ immediate followup, please feel free to followup with psychiatry and we will visit with patient if there are any new symptoms or urgent nidhi rns. Nilson Heard MD cc: [id number] TT: 05/06/2017 11:08:06 Confirmation # [id number] Dictation # [id number] jn
--- NOTE | 2017-05-06 13:09 | PN ---
DATE: 05/06/2017 CHIEF COMPLAINT: Questionable left arm weakness. SUBJECTIVE: The patient is moving all extremities, gets agitated. CAT scan of the head showed no ac merline intracranial abnormality, though he has definitely Alzheimer type dementia with severe behavioral disorders. Behavior disturbances is being managed by psychiatry who is adjusting his Seroquel doses to where he is on his Seroquel 25 mg p.o. t.i.d. and is increased to stare 125 p.o. at bedtime. Cur rently more stable today. He was being restless and disorganized and agitated and difficult to contr ol in the unit. His insight and judgment seems to be fair. PAST MEDICAL HISTORY: Dementia diagnosed approximately 7 years ago, has gotten worse over the past y ear and has trouble recognizing family members and ____ carrying on a conversation. He has history o f hypertension, BPH, coronary artery disease with coronary bypass. SOCIAL HISTORY: No illicit drug use, smoking, or ETOH abuse. MEDICATIONS: Reviewed via nurses reconciliation sheet. FAMILY HISTORY: Noncontributory. REVIEW OF SYSTEMS: A 14-point review of systems is negative except for the HPI. PHYSICAL EXAMINATION: VITAL SIGNS: Temperature 97.8, pulse rate 53, blood pressure 134/____, respiratory rate of 18, oxyge n saturation 94% via room air. GENERAL: The patient is sitting up in bed in no acute distress. HEENT: Atraumatic, normocephalic. PERRLA. Extraocular muscles intact. NECK: Supple, no JVD, no adenopathy noted. LUNGS: Clear to auscultation. No adventitious sounds. HEART: S1, S2, normal rate and rhythm. No murmurs, rubs, or gallops. ABDOMEN: Soft, nontender, nondistended. Bowel sounds present. EXTREMITIES: No clubbing, no cyanosis. Peripheral pulses bilaterally. NEUROLOGIC: Drowsy. He is alert, oriented to self, not to person, month or year. Recall after 5 mi nutes is 0/3. Thoughts are disorganized, tangential process. Speech is hypophonic. Cranial nerves II through XII are intact. MOTOR: Slight increased tone throughout. Moves all extremities equally. No pronator drift seen. SENSORY: Withdraws on localized noxious stimulus. COORDINATION AND GAIT: Deferred for now. DEEP TENDON REFLEXES: 1+ throughout. LABORATORY DATA: No new labs were done today. IMPRESSION: This is a 76-year-old man with history of hypertension, coronary artery disease status p ost coronary artery bypass graft, benign prostatic hypertrophy, history of dementia Alzheimer's type , who has had a questionable transient left arm weakness which seems very bizarre though his neuro ex am he is moving all extremities. His CAT scan showed no acute intracranial abnormalities. Though he is having recurrent transient intermittent confusional state, which is more of an Alzheimer's type d ementia with a superimposed behavioral disturbances which is being managed by psychiatry. At this ti me, continue with his Seroquel 100 mg p.o. at bedtime and 25 mg p.o. t.i.d. and Geogayatri p.r.n. and Johnny le for his underlying dementia. At this time, continue with current present medical management. Thank you for this followup. We will sign off. Prasanna Chowdhury MD cc: [phone] TT: 05/06/2017 13:08:36 Confirmation # [id number] Dictation # [id number] cyn
--- NOTE | 2017-05-06 18:32 | PN ---
DATE: 05/06/2017 The patient is in bed, in no acute distress; however, continues to be confused. PHYSICAL EXAMINATION: VITAL SIGNS: Temperature is 97, blood pressure is 140/80, respiratory rate of 18. HEENT: Unremarkable. NECK: Supple. LUNGS: Have decreased breath sounds. HEART: Normal S1, S2. ABDOMEN: Soft, nontender. LABORATORY DATA: Reveals a white count of 9.2, hemoglobin of 12, platelets of 231. Chemistries are noted. The patient's procalcitonin is 0.67. A CAT scan of the abdomen and pelvis is noted. No infi ltrate in the lower thorax CAT scan of the abdomen, no acute abnormality in the abdomen. Dr. Chowdhury's note is reviewed and appreciated. Dr. Heard's note is reviewed. Review of microbiology reveals the blood and urine cultures are negative. ASSESSMENT AND PLAN: This is a 76-year-old who appears much, much older than his stated age with a h istory of Alzheimer dementia and coronary artery disease, Parkinson disease, benign prostatic hypertr ophy, hypertension, admitted with systemic inflammatory response syndrome. Had abdominal tenderness and a CAT scan of the abdomen is negative on Zosyn. Procalcitonin is elevated and concerned about as piration pneumonia, although no infiltrates are seen in the lower parts of the chest on the CAT scan of the abdomen. At this point, will continue the Zosyn. Leukocytosis is improved. Cultures negativ e. The patient has been afebrile throughout the hospitalization. Overall, prognosis is quite poor. Should consider supportive care. Will repeat a procalcitonin in a.m. and will make further recommen dations. Should consider a hospice setting in this patient who has no quality of life. Rom Li MD cc: [id number] TT: 05/06/2017 18:31:57 Confirmation # [id number] Dictation # [id number] pasha
[2017-05-07] MEDS: Piperacillin/Tazobact 3.375 gm 100 ML IVPB SCH ×2 (05:13→16:15)
--- NOTE | 2017-05-07 07:50 | PN ---
DATE: 05/06/2017 SUBJECTIVE: He is in delirium. Has episodes of agitation in between. Unable to communicate, unable to ambulate. No fever, no chest pain. No cough with expectoration. REVIEW OF SYSTEMS: As per HPI. Rest of 12-point reviewed and negative. MEDICATIONS: Xanax 0.25 mg p.o. b.i.d., aspirin 81 mg daily, vitamin D 50,000 units weekly, Zestril 40 mg daily, Namenda 10 mg daily, Zosyn q. 8 hours, Seroquel 100 mg p.o. at bedtime, Geodon 10 mg IM q. 6 hours p.r.n. for agitation. LABORATORIES: Sodium 140, potassium 4.7, creatinine 1.2. White count 9.2, hemoglobin 12.7, hematocrit 37.5, platelet count 231. PHYSICAL EXAMINATION: GENERAL: He is agitated in bed, moving all the limbs. VITAL SIGNS: Stable. Temperature 98., heart rate 80 per minute, blood pressure 120/70, respiratory rate 15 per minute, oxygen saturation 98% room air. HEENT: Normal. NECK: Supple, no lymphadenopathy. CHEST: Air entry present, equal bilateral. No added sound. CARDIOVASCULAR: S1, S2 normal. No murmur, no gallop. ABDOMEN: Soft, nontender, nondistended. No rebound tenderness. No rigidity, no guarding. EXTREMITIES: No edema. NEUROLOGIC: Confused, moving all the extremities, not arousable. SKIN: No petechia, no rash. SPINE: Nontender. LYMPHADENOPATHY: None. ASSESSMENT: 1. Delirium. 2. Parkinson disease. 3. Coronary artery disease. 4. Hypertension. 5. Leukocytosis. 6. Anemia. PLAN: We will continue current medications. Continue psych medications, Seroquel and Geodon. He requires Geodon for episodic agitation . He is unable to ambulate, currently sitting in chair. Continue cardiac medication, aspirin and lisinopril. Blood pressure controlled on current medications. Neurology following. Dr. Chowdhury's note reviewed. Currently on Namenda 10 mg daily. We will continue that. Continue Xanax 0.25 mg p.o. b.i.d. p.r.n. ID following for acute inflammatory response. Currently on Zosyn. Will follow ID recommendation. Discussed with the staff nurse. Princess Canaad MD cc: [id number] TT: 05/07/2017 07:50:43 Confirmation # [id number] Dictation # [id number] MTDD
--- NOTE | 2017-05-07 08:07 | PN ---
DATE: 05/05/2017 DATE OF EVALUATION: 05/05/2017 HISTORY OF PRESENT ILLNESS: The patient is a 76-year-old male admitted to the hospital with confusional state. He was more agitated. He had fallen on his head. He has history of Parkinson disease, underlying dementia, Alzheimer's type. Coronary artery disease. He also had fever, currently on IV antibiotics with Zosyn. CAT scan of the abdomen done did not show any lesions. He remains in confusional state. ALLERGIES: No known drug allergies. PAST MEDICAL HISTORY: Coronary artery disease status post CABG, Alzheimer disease, Parkinson disease, BPH. PERSONAL HISTORY: Never smoked. No history of alcohol abuse. SOCIAL HISTORY: Lives at home with . FAMILY HISTORY: Noncontributory. No positive history in mother or father. SURGICAL HISTORY: Unknown. REVIEW OF SYSTEMS: As per HPI. Rest of 12-point system reviewed and negative. PHYSICAL EXAMINATION: GENERAL: He is agitated in bed, moving all the limbs. VITAL SIGNS: Stable. Temperature 98.7, heart rate 100 per minute, blood pressure 130/70, respiratory rate 15 per minute, oxygen saturation 98% room air. HEENT: Normal. NECK: Supple, no lymphadenopathy. CHEST: Air entry present, equal bilateral. No added sound. CARDIOVASCULAR: S1, S2 normal. No murmur, no gallop. ABDOMEN: Soft, nontender, nondistended. No rebound tenderness. No rigidity, no guarding. EXTREMITIES: No edema. NEUROLOGIC: Confused, moving all the extremities, not arousable. SKIN: No petechia, no rash. SPINE: Nontender. LYMPHADENOPATHY: None. LABORATORY DATA: On admission, white count 15,000; hemoglobin 12.8, hematocrit 37.7, MCV 88, platelet count 258. Sodium 140, potassium 4.7, creatinine 1.2, creatine kinase 306. TSH less than 0.02. CURRENT MEDICATIONS: Xanax 0.25 mg p.o. b.i.d., aspirin 81 mg daily, Zestril 40 mg daily, Namenda 10 mg daily, Zosyn q.8 hours, Seroquel 100 mg p.o. at bedtime, Geodon 10 mg IM q.6 hours p.r.n. ASSESSMENT: 1. Delirium. 2. Parkinson disease. 3. Alzheimer dementia. 4. Leukocytosis. 5. Anemia. 6. Vitamin deficiency. 7. Coronary artery disease. 8. Hypertension. PLAN: He is currently is in delirium. Entire medical record reviewed. Consultation with Dr. Li, Dr. Chowdhury and Dr. Garland reviewed. CAT scan of abdomen and pelvis, no lesions, no acute findings. He is currently on IV antibiotic with Zosyn for abdominal pain. ID, Dr. Li, following. Cultures negative. Neurology following. Dr. Chowdhury's note reviewed. He is currently on Namenda. Psych following. Currently on Seroquel and Geodon. Agitation is fairly controlled. He still has frequent episodes of agitation. We will continue cardiac medications, Zestril 40 mg daily, aspirin 81 mg daily, Xanax p.r.n. Princess Canada MD cc: [id number] TT: 05/07/2017 08:06:51 Confirmation # [id number] Dictation # [id number] sn MTDD
--- NOTE | 2017-05-07 13:43 | PN ---
DATE: 05/07/2017 The patient is in bed, in no acute distress, nontoxic. PHYSICAL EXAMINATION: VITAL SIGNS: Temperature is 98, blood pressure is 140/70, respiratory rate of 16. HEENT: Unremarkable. NECK: Supple. LUNGS: Have decreased breath sounds. HEART: Normal S1, S2. ABDOMEN: Soft, nontender. LABORATORY EXAMINATION: Reveals a white count of 9.2, hemoglobin of 12, platelets of 231. The chemi stries are noted, BUN of 34, creatinine of 1.2. Urinalysis is noted. Microbiology: Blood and urine cultures are negative. Review of orders reveals the patient to be on Zosyn. Dr. Canada's note is reviewed. Dr. Chowdhury's not e from yesterday is reviewed. ASSESSMENT AND PLAN: A 76-year-old male who appears much older than his stated age, history of Al[place] dementia, coronary artery disease, Parkinson disease, benign prostatic hypertrophy, hypertension . Admitted with systemic inflammatory response syndrome, had some abdominal tenderness on exam on ad mission, had a CAT scan of the abdomen which is negative and procalcitonin was elevated. Concerned a bout aspiration pneumonia. No infiltrates were seen on the CAT scan of the abdomen in bases of the l sampson. Leukocytosis improved. Culture of blood and urine is negative. At this point, we will discont inue the Zosyn and no further antibiotics are needed. Rom Li MD cc: [id number] TT: 05/07/2017 13:42:53 Confirmation # [id number] Dictation # [id number] en
--- NOTE | 2017-05-07 15:42 | CP.PCM.PN ---
Subjective - Date & Time of Evaluation Date of Evaluation: 05/07/17 Time of Evaluation: 12:00 - Subjective Subjective: DATE: 05/07/2017 SUBJECTIVE: he is sitting in chair. Able to swallow without difficulty. Non communicative. Moving all the limbs. Responds occasionally to verbal commands. REVIEW OF SYSTEMS: As per HPI. Rest of 12-point reviewed and negative. MEDICATIONS: Xanax 0.25 mg p.o. b.i.d., aspirin 81 mg daily, vitamin D 50,000 units weekly, Zestril 40 mg daily, Namenda 10 mg daily, Zosyn q. 8 hours, Seroquel 100 mg p.o. at bedtime, Geodon 10 mg IM q. 6 hours p.r.n. for agitation. LABORATORIES: Sodium 140, potassium 4.7, creatinine 1.2. White count 9.2, hemoglobin 12.7, hematocrit 37.5, platelet count 231. PHYSICAL EXAMINATION: GENERAL: He is agitated in bed, moving all the limbs. VITAL SIGNS: reviewed. HEENT: Normal. NECK: Supple, no lymphadenopathy. CHEST: Air entry present, equal bilateral. No added sound. CARDIOVASCULAR: S1, S2 normal. No murmur, no gallop. ABDOMEN: Soft, nontender, nondistended. No rebound tenderness. No rigidity, no guarding. EXTREMITIES: No edema. NEUROLOGIC: Confused, moving all the extremities, not arousable. SKIN: No petechia, no rash. SPINE: Nontender. LYMPHADENOPATHY: None. ASSESSMENT: 1. Delirium. 2. Parkinson disease. 3. Coronary artery disease. 4. Hypertension. 5. Leukocytosis. 6. Anemia. PLAN: We will continue current medications. Continue psych medications, Seroquel and Geodon. Continue cardiac medication, aspirin and lisinopril. Blood pressure controlled on current medications. Neurology following. Dr. Chowdhury's note reviewed. Currently on Namenda 10 mg daily. We will continue that. Continue Xanax 0.25 mg p.o. b.i.d. p.r.n. Currently on Zosyn. CT abdomen no acute lesion.. Discussed with the staff nurse. Princess Canada MD Objective - Vital Signs/Intake and Output Vital Signs (last 24 hours): Temp Pulse Resp BP Pulse Ox 98.3 F 66 22 140/72 94 L 05/07/17 08:00 05/07/17 08:00 05/07/17 08:00 05/07/17 08:00 05/07/17 08:00 Intake and Output: 05/07/17 05/07/17 06:59 18:59 Intake Total 240 Balance 240 - Medications Medications: Current Medications Alprazolam (Xanax) 0.25 mg PO BID PRN PRN Reason: Anxiety Stop: 05/11/17 08:48 Last Admin: 05/05/17 15:50 Dose: 0.25 mg Aspirin (Aspirin Chewable) 81 mg PO DAILY [facility] Last Admin: 05/07/17 09:34 Dose: 81 mg Ergocalciferol (Drisdol 50,000 Intl Units Cap) 1 cap PO Q7D [facility] Last Admin: 05/05/17 21:56 Dose: 1 cap Lisinopril (Zestril) 40 mg PO DAILY [facility] Last Admin: 05/07/17 09:32 Dose: 40 mg Memantine (Namenda) 10 mg PO DAILY [facility] Last Admin: 05/07/17 09:32 Dose: 10 mg Memantine (Namenda) 5 mg PO 1800 [facility] Last Admin: 05/06/17 17:32 Dose: 5 mg Quetiapine Fumarate (Seroquel) 100 mg PO HS [facility] Last Admin: 05/06/17 21:25 Dose: 100 mg Quetiapine Fumarate (Seroquel) 25 mg PO TID [facility] Last Admin: 05/07/17 09:33 Dose: 25 mg Ziprasidone (Geodon Inj) 10 mg IM Q6H PRN PRN Reason: Agitation - Labs Labs: 05/05/17 06:30 PT 11.3 Seconds (9.9-11.8) 05/03/17 18:00 INR 1.05 (0.93-1.08) 05/03/17 18:00 APTT 25.2 Seconds (23.7-30.8) 05/03/17 18:00
--- NOTE | 2017-05-08 09:59 | PN ---
DATE: 05/08/2017 SUBJECTIVE: The patient has no complaints of any chest pain, shortness of breath, no headaches. PHYSICAL EXAMINATION: VITAL SIGNS: Temperature 98, pulse of 80, blood pressure 167/76, respirations 22. GENERAL: The patient is comfortable, in no acute distress. HEENT: Anicteric sclerae. Moist mucosa. NECK: No JVD or adenopathy. CARDIAC: S1/S2. No murmurs. No rubs. Regular. RESPIRATORY: Clear to auscultation bilaterally. No wheezes, rales, or rhonchi. Good air entry. ABDOMEN: Bowel sounds are positive, soft, nontender, and nondistended. EXTREMITIES: No edema. Has 1+ pulses. LABS: White count of 9.2, hemoglobin 12.7. Creatinine is 1.2. ASSESSMENT: 1. Fall. 2. Delirium. 3. Coronary artery disease, status post coronary artery bypass graft. 4. Parkinson's. 5. Dementia, Alzheimer's type. 6. Benign prostatic hypertrophy. 7. Hypertension. 8. Asymptomatic bradycardia. PLAN: The patient is currently comfortable. Blood cultures and urine cultures have been negative. The patient has his antibiotics discontinued. He is on aspirin. He is going to continue with memant ine for his dementia. He is on Seroquel. The patient is on lisinopril for hypertension. He is on a regular diet. He is off 1:1. We will see if he can get physical therapy. Ronal Hernandez MD cc: [id number] TT: 05/08/2017 09:58:40 Confirmation # [id number] Dictation # [id number] mn
--- NOTE | 2017-05-08 12:43 | PN ---
DATE: 05/08/2017 The patient is a 76-year-old white male with advanced Alzheimer dementia with behavioral disturbance. I spoke at length with patient's and son at bedside. Discussed his overall condition, discuss ed coping and dealing with patient's debilitated status at home. The patient's appears ____ obv iously depressed. She is the primary caregiver. The patient is sleeping, but arousable. I spoke wi th nurses. He had breakfast this morning, intermittent agitation, able to have some degree of conver sation with nurse; however, patient now is totally incoherent. CURRENT MEDICATIONS: Include Apresoline, Drisdol, Namenda, Seroquel 25 mg t.i.d. and 100 mg at bedti me, Zestril 40 mg daily. VITAL SIGNS: His blood pressure is 167/76, pulse 80, respirations 20 per minute and afebrile. O2 sa turation 97% on room air. IMPRESSION: The patient has advanced Alzheimer dementia, severe. He has vitamin D deficiency. He south s behavioral disturbance. He has history of hypertension. PLAN: Continue above psychotropic medicine. Continue to monitor mental status. Matias Garland MD cc: [id number] TT: 05/08/2017 12:43:08 Confirmation # [id number] Dictation # [id number] sn
--- NOTE | 2017-05-08 16:56 | PN ---
DATE: 05/08/2017 SUBJECTIVE: The patient is in bed in no acute distress, nontoxic. PHYSICAL EXAMINATION: VITAL SIGNS: Temperature is 98, blood pressure is 160/70, respiratory rate of 18. HEENT: Unremarkable. NECK: Supple. LUNGS: Have decreased breath sounds. HEART: Normal S1, S2. ABDOMEN: Soft. LABORATORY DATA: Reveals a white count of 9.2, hemoglobin of 12. Chemistries reveal creatinine is 1 .2. Urinalysis is noted. Microbiology reveals the urine culture is negative. Blood cultures are ne gative. ASSESSMENT AND PLAN: This is a 76-year-old who appears much, much older than his stated age, history of Alzheimer's dementia, Parkinson's disease, benign prostatic hypertrophy, hypertension, admitted w ith systemic inflammatory response syndrome and abdominal tenderness. On admission, CAT scan is nega tive currently off of antibiotics, afebrile. Review of the orders confirms the patient to be o ff of antibiotics. The patient is afebrile. Mental status is baseline at this point. White count i s down to 9.2. All cultures negative and procalcitonin is also down to 0.15. The patient is at risk for developing nosocomial infection. Dr. Hernandez's note is reviewed from today. Rom Li MD cc: [id number] TT: 05/08/2017 16:55:26 Confirmation # [id number] Dictation # [id number] ln
[2017-05-09 06:59] LABS: MEAN CELL VOLUME 88.9 fL (80.0-105.0); MEAN CORPUSCULAR HEMOGLOBIN 29.5 pg (25.0-35.0); MEAN CORPUSCULAR HGB CONC 33.2 g/dl (31.0-37.0); MEAN PLATELET VOLUME 10.1 fl (7.0-11.0)
[2017-05-09 07:24] LABS: ALB/GLOB RATIO 1.1 (1.1-1.8); ALKALINE PHOSPHATASE 85 U/L (38-133); ALT/SGPT 52 U/L (7-56); AST/SGOT 118 U/L (15-59); BILIRUBIN,TOTAL 0.8 mg/dL (0.2-1.3); BLOOD UREA NITROGEN 21 mg/dL (7-21); CALCIUM 9.5 mg/dL (8.4-10.5); CARBON DIOXIDE 30 mmol/L (21-33); CHLORIDE 108 mmol/L (98-107); GFR AFRICAN-AMERICAN > 60; GLUCOSE,RANDOM 91 mg/dL (70-110); POTASSIUM 3.8 mmol/L (3.6-5.0); SODIUM 147 mmol/L (132-148); TOTAL PROTEIN 7.3 g/dL (5.8-8.3)
--- NOTE | 2017-05-10 | CP.PCM.PN ---
Subjective - Date & Time of Evaluation Date of Evaluation: 05/09/17 Time of Evaluation: 10:00 - Subjective Subjective: WEAK Objective - Vital Signs/Intake and Output Vital Signs (last 24 hours): Temp Pulse Resp BP Pulse Ox 98 F 70 18 136/80 93 L 05/09/17 16:00 05/09/17 16:00 05/09/17 16:00 05/09/17 16:00 05/09/17 16:00 Intake and Output: 05/09/17 05/10/17 18:59 06:59 Intake Total 360 Balance 360 - Medications Medications: Current Medications Aspirin (Aspirin Chewable) 81 mg PO DAILY [facility] Last Admin: 05/09/17 11:21 Dose: 81 mg Carbidopa/Levodopa (Sinemet) 1 tab PO TID [facility] Last Admin: 05/09/17 18:56 Dose: 1 tab Ergocalciferol (Drisdol 50,000 Intl Units Cap) 1 cap PO Q7D [facility] Last Admin: 05/05/17 21:56 Dose: 1 cap Hydralazine HCl (Apresoline) 10 mg PO Q6H PRN PRN Reason: Systolic Blood Pressure Last Admin: 05/07/17 19:56 Dose: 10 mg Lisinopril (Zestril) 40 mg PO DAILY [facility] Last Admin: 05/09/17 11:21 Dose: 40 mg Memantine (Namenda) 10 mg PO DAILY [facility] Last Admin: 05/09/17 11:21 Dose: 10 mg Memantine (Namenda) 5 mg PO 1800 [facility] Last Admin: 05/09/17 18:56 Dose: 5 mg Quetiapine Fumarate (Seroquel) 100 mg PO HS [facility] Last Admin: 05/09/17 21:37 Dose: 100 mg Quetiapine Fumarate (Seroquel) 25 mg PO TID [facility] Last Admin: 05/09/17 18:55 Dose: 25 mg Ziprasidone (Geodon Inj) 10 mg IM Q6H PRN PRN Reason: Agitation - Labs Labs: 05/09/17 06:30 05/09/17 06:30 PT 11.3 Seconds (9.9-11.8) 05/03/17 18:00 INR 1.05 (0.93-1.08) 05/03/17 18:00 APTT 25.2 Seconds (23.7-30.8) 05/03/17 18:00 - Constitutional Appears: Well - Head Exam Head Exam: ATRAUMATIC, NORMAL INSPECTION, NORMOCEPHALIC - Eye Exam Eye Exam: EOMI, Normal appearance, PERRL Pupil Exam: NORMAL ACCOMODATION, PERRL - ENT Exam ENT Exam: Mucous Membranes Moist, Normal Exam - Neck Exam Neck Exam: Full ROM, Normal Inspection. absent: Lymphadenopathy - Respiratory Exam Respiratory Exam: Clear to Ausculation Bilateral, NORMAL BREATHING PATTERN - Cardiovascular Exam Cardiovascular Exam: REGULAR RHYTHM, +S1, +S2. absent: Murmur - GI/Abdominal Exam GI & Abdominal Exam: Soft, Normal Bowel Sounds. absent: Tenderness - Rectal Exam Rectal Exam: NORMAL INSPECTION - Exam Exam: Circumcision, NORMAL INSPECTION External exam: NORMAL EXTERNAL EXAM Speculum exam: NORMAL SPECULUM EXAM Bimanual exam: NORMAL BIMANUAL EXAM - Extremities Exam Extremities Exam: Full ROM, Normal Capillary Refill, Normal Inspection. absent : Joint Swelling, Pedal Edema - Back Exam Back Exam: NORMAL INSPECTION - Neurological Exam Neurological Exam: Alert, Awake, CN II-XII Intact, Normal Gait, Oriented x3 - Psychiatric Exam Psychiatric exam: Normal Affect, Normal Mood - Skin Skin Exam: Dry, Intact, Normal Color, Warm Assessment and Plan - Assessment and Plan (Free Text) Assessment: SIRS Plan: OFF OF ABX D/W WITH PMD
[2017-05-10 07:38] VITALS: BP 136/84; PULSE 80; RESP 22; TEMP 98.4; O2SAT 96
--- NOTE | 2017-05-10 09:30 | CP.PCM.PN ---
Subjective - Date & Time of Evaluation Date of Evaluation: 05/10/17 Time of Evaluation: 09:27 - Subjective Subjective: Pt with no pain. Eating ok. Awake. Objective - Vital Signs/Intake and Output Vital Signs (last 24 hours): Temp Pulse Resp BP Pulse Ox 98.4 F 80 22 136/84 96 05/10/17 07:37 05/10/17 07:37 05/10/17 07:37 05/10/17 07:37 05/10/17 07:37 Intake and Output: 05/10/17 05/10/17 06:59 18:59 Intake Total 360 Balance 360 - Medications Medications: Current Medications Aspirin (Aspirin Chewable) 81 mg PO DAILY [facility] Last Admin: 05/09/17 11:21 Dose: 81 mg Carbidopa/Levodopa (Sinemet) 1 tab PO TID [facility] Last Admin: 05/09/17 18:56 Dose: 1 tab Ergocalciferol (Drisdol 50,000 Intl Units Cap) 1 cap PO Q7D [facility] Last Admin: 05/05/17 21:56 Dose: 1 cap Hydralazine HCl (Apresoline) 10 mg PO Q6H PRN PRN Reason: Systolic Blood Pressure Last Admin: 05/07/17 19:56 Dose: 10 mg Lisinopril (Zestril) 40 mg PO DAILY [facility] Last Admin: 05/09/17 11:21 Dose: 40 mg Memantine (Namenda) 10 mg PO DAILY [facility] Last Admin: 05/09/17 11:21 Dose: 10 mg Memantine (Namenda) 5 mg PO 1800 [facility] Last Admin: 05/09/17 18:56 Dose: 5 mg Quetiapine Fumarate (Seroquel) 100 mg PO HS [facility] Last Admin: 05/09/17 21:37 Dose: 100 mg Quetiapine Fumarate (Seroquel) 25 mg PO TID [facility] Last Admin: 05/09/17 18:55 Dose: 25 mg Ziprasidone (Geodon Inj) 10 mg IM Q6H PRN PRN Reason: Agitation - Labs Labs: 05/09/17 06:30 05/09/17 06:30 PT 11.3 Seconds (9.9-11.8) 05/03/17 18:00 INR 1.05 (0.93-1.08) 05/03/17 18:00 APTT 25.2 Seconds (23.7-30.8) 05/03/17 18:00 - Constitutional Appears: Non-toxic, No Acute Distress - Head Exam Head Exam: NORMAL INSPECTION - Eye Exam Eye Exam: EOMI, Normal appearance, PERRL Pupil Exam: NORMAL ACCOMODATION - ENT Exam ENT Exam: Mucous Membranes Moist, Normal Exam - Neck Exam Neck Exam: Normal Inspection - Respiratory Exam Respiratory Exam: Clear to Ausculation Bilateral, NORMAL BREATHING PATTERN - Cardiovascular Exam Cardiovascular Exam: REGULAR RHYTHM, +S1, +S2, +S4, Murmur. absent: JVD - GI/Abdominal Exam GI & Abdominal Exam: Normal Bowel Sounds. absent: Bruit, Tenderness, Organomegaly - Back Exam Back Exam: NORMAL INSPECTION - Neurological Exam Neurological Exam: Alert, Awake, Normal Gait - Psychiatric Exam Psychiatric exam: Flat Affect Assessment and Plan - Assessment and Plan (Free Text) Assessment: 1. Fall. 2. Delirium. 3. Coronary artery disease, status post coronary artery bypass graft. 4. Parkinson's. 5. Dementia, Alzheimer's type. 6. Benign prostatic hypertrophy. 7. Hypertension. 8. Asymptomatic bradycardia. Plan: The patient is currently comfortable. Blood cultures and urine cultures have been negative. He is on aspirin. He is going to continue with memantine for his dementia. He is on Seroquel. The patient is on lisinopril for hypertension. He is on a regular diet. physical therapy. He was not accepted by [facility]. If not accepted to [facility]/TCU will D/C home.
--- NOTE | 2017-05-10 19:30 | CP.PCM.PN ---
Subjective - Date & Time of Evaluation Date of Evaluation: 05/10/17 Time of Evaluation: 08:00 - Subjective Subjective: doing well Objective - Vital Signs/Intake and Output Vital Signs (last 24 hours): Temp Pulse Resp BP Pulse Ox 98.4 F 80 22 136/84 96 05/10/17 07:37 05/10/17 07:37 05/10/17 07:37 05/10/17 07:37 05/10/17 07:37 Intake and Output: 05/10/17 05/11/17 18:59 06:59 Intake Total 60 Balance 60 - Labs Labs: 05/09/17 06:30 05/09/17 06:30 PT 11.3 Seconds (9.9-11.8) 05/03/17 18:00 INR 1.05 (0.93-1.08) 05/03/17 18:00 APTT 25.2 Seconds (23.7-30.8) 05/03/17 18:00 - Constitutional Appears: Well - Head Exam Head Exam: ATRAUMATIC, NORMAL INSPECTION, NORMOCEPHALIC - Eye Exam Eye Exam: EOMI, Normal appearance, PERRL Pupil Exam: NORMAL ACCOMODATION, PERRL - ENT Exam ENT Exam: Mucous Membranes Moist, Normal Exam - Neck Exam Neck Exam: Full ROM, Normal Inspection. absent: Lymphadenopathy - Respiratory Exam Respiratory Exam: Clear to Ausculation Bilateral, NORMAL BREATHING PATTERN - Cardiovascular Exam Cardiovascular Exam: REGULAR RHYTHM, +S1, +S2. absent: Murmur - GI/Abdominal Exam GI & Abdominal Exam: Soft, Normal Bowel Sounds. absent: Tenderness - Rectal Exam Rectal Exam: NORMAL INSPECTION - Exam Exam: Circumcision, NORMAL INSPECTION External exam: NORMAL EXTERNAL EXAM Speculum exam: NORMAL SPECULUM EXAM Bimanual exam: NORMAL BIMANUAL EXAM - Extremities Exam Extremities Exam: Full ROM, Normal Capillary Refill, Normal Inspection. absent : Joint Swelling, Pedal Edema - Back Exam Back Exam: NORMAL INSPECTION - Neurological Exam Neurological Exam: Alert, Awake, CN II-XII Intact, Normal Gait, Oriented x3 - Psychiatric Exam Psychiatric exam: Normal Affect, Normal Mood - Skin Skin Exam: Dry, Intact, Normal Color, Warm Assessment and Plan - Assessment and Plan (Free Text) Assessment: SIRS Plan: S/P ABX FOR SIRS OFF OF ABX
== END 2017-05-10 14:06 | DRG 57 ==
LOC: ED 17:31 → ERH 20:22 → 2RNO 22:55 → 5RNO 05-04 13:37
PROVIDERS: ADMIT Internal Medicine Nephrology; ATTEND Internal Medicine Nephrology
DX: G30.9 Alzheimer's disease, unspecified (principal); F02.81 Dementia in other diseases classified elsewhere, unspecified severity, with behavioral disturbance; R65.10 Systemic inflammatory response syndrome (SIRS) of non-infectious origin without acute organ dysfunction; E87.2 Acidosis; G20 Parkinson's disease; R00.1 Bradycardia, unspecified; I25.10 Atherosclerotic heart disease of native coronary artery without angina pectoris; N40.0 Benign prostatic hyperplasia without lower urinary tract symptoms; I10 Essential (primary) hypertension; E55.9 Vitamin D deficiency, unspecified; D64.9 Anemia, unspecified; R47.01 Aphasia; S00.81XA Abrasion of other part of head, initial encounter; W19.XXXA Unspecified fall, initial encounter; R29.6 Repeated falls; Z66 Do not resuscitate; Z95.1 Presence of aortocoronary bypass graft; Z95.5 Presence of coronary angioplasty implant and graft; Y93.89 Activity, other specified; Y92.009 Unspecified place in unspecified non-institutional (private) residence as the place of occurrence of the external cause; Y99.8 Other external cause status